=== PATIENT | female | born 1995 | race Caucasian/White ===

== ENCOUNTER 2017-08-02 17:34 | Emergency (ER) | payer BC ==
[~2017-08-02] VITALS: Ht 170.2 cm; Wt 66.9 kg
[~2017-08-02 17:34] MED LIST: THYROID PILL
[2017-08-02 17:42] VITALS: TEMP 36.3; Ht 170.2 cm; Wt 66.9 kg
[2017-08-02] MEDS ORDERED: LEVO100T7 PO (17:54)
[2017-08-02] MEDS ORDERED: LORAZEPAM 2 MG/ML 1 ML VIAL IV STA ×2 (18:10→18:32)
--- NOTE | 2017-08-02 18:16 | EMERGENCY ROOM VISIT NOTE ---
History First contact with patient: 17:47 Chief Complaint: FACIAL PAIN/INJURY Stated Complaint: LOCKED JAW History of Present Illness The patient is a 22 year old female who presents to the Emergency Room with complaints of a "locked jaw." The patient states that she be yawned approximately one hour prior to arrival, and her job remained locked open. She states this has happened to her once before and she was in college and needed to be put back in place. She does state that she required a muscle relaxer to do this, but did not have to be sedated. She did follow-up with a maxillofacial surgeon following this. She rates her current discomfort a 3/10. She denies any other complaints. Review of Systems A complete 10 point review of systems was reviewed with the patient with pertinent positives and negatives as per history of present illness. All else were negative. Past Medical/Surgical History Medical Problems: (1) Dislocation of mandible Surgical Problems: (1) History of wisdom tooth extraction Social History Smoking Status: Never Smoker Alcohol Use: none Housing Status: lives with family Current/Historical Medications Scheduled Levothyroxine Sodium (Levothyroxine Sodium), 100 MCG PO DAILY Physical Exam Vital Signs Date Time Temp Pulse Resp B/P (MAP) Pulse Ox O2 Delivery O2 Flow Rate FiO2 08/02/17 19:21 90 16 121/70 100 Room Air 08/02/17 18:46 77 20 96/86 100 Room Air 08/02/17 18:17 100 Room Air 08/02/17 17:42 36.3 99 16 134/66 95 Room Air Physical Exam VITALS: Vitals are noted on the nurse's note and reviewed by myself. Vital signs stable. GENERAL: This is a 22-year-old female, in no acute distress, well-developed well -nourished. MOUTH: Patient is unable to close mouth. Mild tenderness to palpation bilateral TMJs. NECK: Supple without nuchal rigidity. HEART: Regular rate and rhythm without murmurs gallops or rubs. LUNGS: Clear to auscultation bilaterally without wheezes, rales or rhonchi. NEURO: Patient was alert and oriented to person place and time. Medical Decision & Procedures Medications Administered Medications (Trade) Dose Ordered Sig/Garo Route Start Time Stop Time Status Last Admin Dose Admin Lorazepam (Ativan Inj) 1 mg NOW STAT IV 08/02/17 18:10 08/02/17 18:11 DC 08/02/17 18:21 1 MG Lorazepam (Ativan Inj) 1 mg NOW STAT IV 08/02/17 18:32 08/02/17 18:33 DC 08/02/17 18:45 1 MG Medical Decision Patient was evaluated as above. She presents with mandibular dislocation. She has had this happen in the past. She was given IV Ativan to help with anxiety regarding reduction. After the patient was feeling much more relaxed, reduction was attempted by applying downward pressure to the jaw. This did seem to improve patient's placement of her mandible, however I was unable to fully reduce it. Dr. Corral attempted reduction and was successful. Patient was able to close her mouth fully and felt much better. Conservative measures were discussed. She verbalized understanding of my assessment and treatment plan and was discharged home in good condition. Medication Reconcilliation Current Medication List: was personally reviewed by me Blood Pressure Screening Patient's blood pressure: Normal blood pressure Impression Primary Impression: Dislocation of mandible Departure Information Dispostion Home / Self-Care Condition GOOD Referrals Liban Stallings M.D. (PCP) Patient Instructions My [facility] Additional Instructions For pain control, you can use the following [id number] medicines (if >12 yo): - Regular strength (325mg/tab) Tylenol (acetaminophen) 2 tabs every 4-6 hours as needed. Do not exceed 12 tablets in a 24 hour period. Avoid taking more than 4 grams (4000 mg) of Tylenol per day. This includes any other sources of acetaminophen you may take on a regular basis. - Regular strength (200 mg/tab) Advil (ibuprofen) 1-2 tabs every 4-6 hours as needed. Do not exceed a dose of 3200 mg per day. Apply ice to the jaw as needed for pain. Do not appear the mouth too widely for the next day or so, as this may result in a recurrent dislocation. Return to the emergency with any recurrent dislocations or other new/concerning symptoms. Problem Qualifiers Primary Impression: Dislocation of mandible Encounter type: initial encounter Qualified Codes: S03.00XA - Dislocation of jaw, unspecified side, initial encounter
[2017-08-02 18:17] VITALS: O2SAT 100
--- NOTE | 2017-08-02 19:13 | EMERGENCY ROOM VISIT NOTE ---
ED Visit Note First contact with patient: 17:47 I was asked to see the patient by my PA. The patient presented with a mandible dislocation and there had been difficulty with reduction. The patient had received IV Ativan for relaxation. She was comfortable. Using my 2 thumbs and downward pressure on the back of the mandible/posterior teeth, I did feel the jaw reduce. The patient was able to speak and close her mouth. She felt improved. She will be discharged with outpatient follow-up.
[2017-08-02 19:21] VITALS: BP 121/70; PULSE 90; O2SAT 100
--- NOTE | 2017-08-04 09:23 | EDITING REQUIRED CODING QUERY ---
CODING QUERY Courtney TRINIDAD, To promote full compliance with coding requirements relating to patient care, provider participation is requested in all cases of carbon lamp cleaner uncertainty. Please assist us with the question(s) below: Coding Question(s): Patient presented with Jaw Dislocation. Please clarify laterality below: Physician's Response(s): Bilateral Thank you Jean Paul Troncoso Principal Diagnosis: "_that condition established after study, to be chiefly responsible for occasioning the admission of the patient to the hospital for care." Co-Existing Principal Diagnosis: "_when two or more diagnoses equally meet the criteria for principal diagnosis as determined by the circumstances of admission, diagnostic work up, and/or therapy provided, and the Alphabetic Index, Tabular List, or another coding guideline does not provide sequencing direction, any one of the diagnoses may be sequenced first." "When the physician has documented what appears to be a current diagnosis in the body of the record, but has not included the diagnosis in the final diagnostic statement, the physician should be asked whether the diagnosis should be added." (Source [facility]oding [facility] 2 QTR90. p3-4)
== END 2017-08-02 19:22 | disposition home or self-care (01) ==
LOC: C.EDB 17:36 → C.EDD 19:22
DX: S03.03XA Dislocation of jaw, bilateral, initial encounter (principal); X58.XXXA Exposure to other specified factors, initial encounter; Z98.818 Other dental procedure status